=== PATIENT | female | born 1970 | race Caucasian/White ===

== ENCOUNTER 2016-11-24 15:36 | Emergency (ER) | payer SELFPAY ==
[~2016-11-24] VITALS: Ht 177.8 cm; Wt 86.6 kg
[2016-11-24 15:55] VITALS: BP 114/79
[2016-11-24] MEDS ORDERED: [UNRECOGNIZED DRUG - REMARK] (16:05)
--- NOTE | 2016-11-24 16:05 | NUR ---
PT IS REFERRED TO SHE/FEMALE.
--- NOTE | 2016-11-24 16:29 | NUR ---
Patient taken to XRAY via wheelchair per tech--from lobby.
--- NOTE | 2016-11-24 16:41 | NUR ---
Patient back from XRAY via wheelchair per tech--to lobby.
--- NOTE | 2016-11-24 17:17 | NUR ---
CD of XRAY was given to patient, as requested. Authorization for Disclosure signed by patient.
--- NOTE | 2016-11-24 17:20 | NUR ---
PATIENT LEFT WITHOUT BEING SEEN BY DR. LAUREN. NO FURTHER CARE PROVIDED FOR PATIENT.
== END 2016-11-24 17:20 | disposition left against medical advice (07) ==
LOC: MED 15:36
DX: R09.89 Other specified symptoms and signs involving the circulatory and respiratory systems (principal); Z53.21 Procedure and treatment not carried out due to patient leaving prior to being seen by health care provider
CPT/HCPCS: 70360; 99281